=== PATIENT | female | born 1935 | race Caucasian/White ===

== ENCOUNTER 2019-03-28 18:41 | Inpatient (IN) | payer OTHER, MEDICAID ==
[~2019-03-28] VITALS: Ht 157.5 cm; Wt 71.0 kg
[2019-03-28 18:43] VITALS: BP_SYST 161
[2019-03-28] MEDS ORDERED: ONDANSETRON HCL 4 MG/2 ML VIAL IVP ONE (18:45)
[2019-03-28] MEDS ORDERED: MORPHINE 4 MG/ML INJ. SYRINGE IVP ONE ×2 (18:45→21:30)
[2019-03-28 19:05] LABS: BASOPHILS % (AUTO) 0.6 % (0.0-2.0); EOSINOPHILS # (AUTO) 0.1 K/uL (0.0-0.4); EOSINOPHILS % (AUTO) 1.5 % (0.0-4.0); HEMATOCRIT 35.4 % (36-48); HEMOGLOBIN 11.9 g/dL (12.0-16.0); LYMPHOCYTES # (AUTO) 1.7 K/uL (1.0-5.5); LYMPHOCYTES % (AUTO) 29.3 % (20.5-51.5); MEAN CORPUSCULAR HEMOGLOBIN 28 pg (27-31); MEAN CORPUSCULAR HGB CONC 34 % (32-36); MEAN CORPUSCULAR VOLUME 84 fL (79.0-98.0); MONOCYTES # (AUTO) 0.4 K/uL (0.0-1.0); MONOCYTES % (AUTO) 6.5 % (1.7-9.3); NEUTROPHILS # (AUTO) 3.6 K/uL (1.8-7.7); NEUTROPHILS % (AUTO) 62.1 % (40.0-70.0); PLATELET COUNT (AUTO) 274 K/uL (130-430); RED CELL DISTRIBUTION WIDTH 16.8 % (9.0-15.0); WHITE BLOOD COUNT (AUTO) 5.8 K/uL (4.8-10.8)
[2019-03-28 19:14] LABS: ANION GAP 7 (5-15); CALCIUM 8.9 mg/dL (8.4-11.0); CHLORIDE 101 mmol/L (98-107); CREATININE 1.12 mg/dL (0.55-1.30); GLUCOSE 124 mg/dL (70-99); POTASSIUM 3.7 mmol/L (3.5-5.1); SODIUM SERUM 135 mmol/L (136-145); UREA NITROGEN, BLOOD 21 mg/dL (8-21)
[2019-03-28] MEDS ORDERED: LEVO5TAB13 PO (19:58)
[2019-03-28] MEDS ORDERED: ALEN10TA6 PO (19:58)
[2019-03-28] MEDS ORDERED: BUPR-120 PO (19:58)
[2019-03-28] MEDS ORDERED: SENN-104 PO (19:58)
[2019-03-28] MEDS ORDERED: LUBI24CA5 PO (19:58)
[2019-03-28] MEDS ORDERED: CALC-805 PO (19:58)
[2019-03-28] MEDS ORDERED: FAMO20TA8 PO (19:58)
[2019-03-28] MEDS ORDERED: GLIM1TAB PO (19:58)
[2019-03-28] MEDS ORDERED: IRBE300T40 PO (19:58)
[2019-03-28] MEDS ORDERED: ROSU20TA PO (19:58)
[2019-03-28] MEDS ORDERED: OMEG-98 PO (19:58)
[2019-03-28] MEDS ORDERED: VITD2000 PO (19:58)
[2019-03-28] MEDS ORDERED: FERR140T2 PO (19:58)
[2019-03-28] MEDS ORDERED: LINA5TAB2 PO (19:58)
[2019-03-28] MEDS ORDERED: TRAZ-218 PO (19:58)
[2019-03-28] MEDS ORDERED: CARV25TA55 PO (19:58)
[2019-03-28] MEDS ORDERED: KETOROLAC TROMETHAMINE 60 MG/2 ML VIAL IM ONE (20:15)
[2019-03-28] MEDS ORDERED: PROPOFOL 200MG/ 20ML VIAL (DIPRIVAN) IV ONE (20:30)
[2019-03-28] MEDS ORDERED: MORPHINE 2 MG/ML INJ. SYRINGE IVP ONE (21:00)
[2019-03-28] MEDS ORDERED: MAGNESIUM SULFATE 50 ML IV PRN (21:45)
[2019-03-28] MEDS ORDERED: ONDANSETRON HCL 4 MG/2 ML VIAL IVP PRN (21:45)
[2019-03-28] MEDS ORDERED: ACETAMINOPHEN 325 MG TABLET PO PRN (21:45)
[2019-03-28] MEDS ORDERED: LORazepam 2 MG/ML VIAL IVP PRN (21:45)
[2019-03-28] MEDS ORDERED: MUPIROCIN 2% TOPICAL OINTMENT 22 GM NS PRN (21:45)
[2019-03-28] MEDS ORDERED: DOCUSATE SODIUM 100 MG CAPSULE PO PRN (21:45)
[2019-03-28] MEDS ORDERED: POTASSIUM CHLORIDE 20 MEQ TAB.PRT.SR PO PRN (21:45)
[2019-03-28] MEDS ORDERED: MORPHINE 2 MG/ML INJ. SYRINGE IVP PRN (21:45)
[2019-03-28] MEDS ORDERED: DEXTROSE 50% JECT 50 ML DISP.SYRIN IVP PRN (21:45)
[2019-03-28 22:51] VITALS: BP_SYST 125
[2019-03-28] MEDS: INSULIN LISPRO SLIDING SCALE 100 UNITS/ML VIAL (humaLOG) SUBCUT PRN (22:59)
[2019-03-28] MEDS: NACL 0.9% 1,000 ML IV SCH (22:59)
[2019-03-28] MEDS: MORPHINE 2 MG/ML INJ. SYRINGE IVP PRN (23:10)
[2019-03-28 23:39] VITALS: BP_SYST 136
[2019-03-29] MEDS: ZOLPIDEM TARTRATE 5 MG TABLET PO PRN ×2 (01:35→20:27)
[2019-03-29 05:25] LABS: BASOPHILS % (AUTO) 0.3 % (0.0-2.0); EOSINOPHILS # (AUTO) 0.1 K/uL (0.0-0.4); EOSINOPHILS % (AUTO) 1.4 % (0.0-4.0); HEMATOCRIT 31.7 % (36-48); HEMOGLOBIN 10.4 g/dL (12.0-16.0); LYMPHOCYTES # (AUTO) 1.4 K/uL (1.0-5.5); LYMPHOCYTES % (AUTO) 25.4 % (20.5-51.5); MEAN CORPUSCULAR HEMOGLOBIN 28 pg (27-31); MEAN CORPUSCULAR HGB CONC 33 % (32-36); MEAN CORPUSCULAR VOLUME 85 fL (79.0-98.0); MONOCYTES # (AUTO) 0.4 K/uL (0.0-1.0); MONOCYTES % (AUTO) 7.8 % (1.7-9.3); NEUTROPHILS # (AUTO) 3.7 K/uL (1.8-7.7); NEUTROPHILS % (AUTO) 65.1 % (40.0-70.0); PLATELET COUNT (AUTO) 231 K/uL (130-430); RED BLOOD CELL COUNT(AUTO) 3.71 MIL/uL (4.2-6.2); RED CELL DISTRIBUTION WIDTH 16.9 % (9.0-15.0); WHITE BLOOD COUNT (AUTO) 5.6 K/uL (4.8-10.8)
[2019-03-29] MEDS: MORPHINE 2 MG/ML INJ. SYRINGE IVP PRN ×2 (05:59→20:27)
[2019-03-29 06:45] LABS: ANION GAP 4 (5-15); CALCIUM 8.3 mg/dL (8.4-11.0); CHLORIDE 104 mmol/L (98-107); CREATININE 1.09 mg/dL (0.55-1.30); GLUCOSE 83 mg/dL (70-99); POTASSIUM 3.6 mmol/L (3.5-5.1); SODIUM SERUM 136 mmol/L (136-145); UREA NITROGEN, BLOOD 18 mg/dL (8-21)
[2019-03-29 08:00] VITALS: BP_SYST 141
[2019-03-29] MEDS: HEPARIN SODIUM,PORCINE 5000 UNITS/ML VIAL SUBCUT SCH ×2 (08:54→20:28)
[2019-03-29] MEDS: LUBIPROSTONE 24 MCG CAPSULE PO SCH ×2 (08:55→17:39)
[2019-03-29] MEDS: buPROPion HCL 150 MG XL TAB PO SCH (08:55)
[2019-03-29] MEDS: CARVEDILOL 25 MG TABLET (COREG) PO SCH (08:55)
[2019-03-29] MEDS ORDERED: KETOROLAC TROMETHAMINE 15 MG VIAL IVP PRN (11:30)
[2019-03-29] MEDS ORDERED: KETOROLAC TROMETHAMINE 15 MG VIAL ONE (11:39)
[2019-03-29 12:35] VITALS: BP_SYST 107
[2019-03-29] MEDS: NACL 0.9% 1,000 ML IV SCH ×2 (14:40→20:28)
[2019-03-29 17:30] VITALS: BP_SYST 123
[2019-03-29 21:00] VITALS: BP_SYST 125
[2019-03-29] MEDS ORDERED: traZODone HCL 50 MG TABLET (DESYREL) PO SCH (21:00)
[2019-03-30 00:48] VITALS: BP_SYST 149
[2019-03-30 07:01] LABS: BASOPHILS % (AUTO) 0.4 % (0.0-2.0); EOSINOPHILS # (AUTO) 0.2 K/uL (0.0-0.4); EOSINOPHILS % (AUTO) 3.6 % (0.0-4.0); HEMATOCRIT 32.9 % (36-48); HEMOGLOBIN 10.9 g/dL (12.0-16.0); LYMPHOCYTES # (AUTO) 1.4 K/uL (1.0-5.5); LYMPHOCYTES % (AUTO) 26.3 % (20.5-51.5); MEAN CORPUSCULAR HEMOGLOBIN 28 pg (27-31); MEAN CORPUSCULAR HGB CONC 33 % (32-36); MEAN CORPUSCULAR VOLUME 85 fL (79.0-98.0); MONOCYTES # (AUTO) 0.4 K/uL (0.0-1.0); MONOCYTES % (AUTO) 6.5 % (1.7-9.3); NEUTROPHILS # (AUTO) 3.4 K/uL (1.8-7.7); NEUTROPHILS % (AUTO) 63.2 % (40.0-70.0); PLATELET COUNT (AUTO) 227 K/uL (130-430); RED BLOOD CELL COUNT(AUTO) 3.86 MIL/uL (4.2-6.2); RED CELL DISTRIBUTION WIDTH 16.7 % (9.0-15.0); WHITE BLOOD COUNT (AUTO) 5.4 K/uL (4.8-10.8)
[2019-03-30 07:21] LABS: ANION GAP 6 (5-15); CALCIUM 8.4 mg/dL (8.4-11.0); CHLORIDE 104 mmol/L (98-107); CHOLESTEROL 120 mg/dL (<200); CREATININE 1.02 mg/dL (0.55-1.30); GLUCOSE 92 mg/dL (70-99); HDL CHOLESTEROL 36 mg/dL (>55); LDL CHOLESTEROL 61 mg/dL (<100); POTASSIUM 3.5 mmol/L (3.5-5.1); SODIUM SERUM 136 mmol/L (136-145); THYROID STIMULATING HORMONE 0.84 uIu/mL (0.34-4.82); TRIGLYCERIDES 144 mg/dL (30-150); UREA NITROGEN, BLOOD 16 mg/dL (8-21)
[2019-03-30 08:00] VITALS: BP_SYST 179
[2019-03-30] MEDS: LUBIPROSTONE 24 MCG CAPSULE PO SCH ×2 (08:00→18:00)
[2019-03-30] MEDS: buPROPion HCL 150 MG XL TAB PO SCH (08:21)
[2019-03-30] MEDS: HEPARIN SODIUM,PORCINE 5000 UNITS/ML VIAL SUBCUT SCH ×2 (08:21→20:46)
[2019-03-30] MEDS: CARVEDILOL 25 MG TABLET (COREG) PO SCH (08:31)
[2019-03-30] MEDS: MORPHINE 2 MG/ML INJ. SYRINGE IVP PRN (08:31)
[2019-03-30] MEDS: cloNIDine HCL 0.1 MG TABLET PO PRN (08:32)
[2019-03-30 12:39] VITALS: BP_SYST 103
[2019-03-30] MEDS ORDERED: D5NS 1,000 ML IV SCH (13:15)
[2019-03-30] MEDS ORDERED: POLYMYXIN 500,000/BACIT.10,000 UNITS in NS IRR 1 L IR ONE (15:37)
[2019-03-30] MEDS ORDERED: LR 1,000 ML IV SCH (16:11)
[2019-03-30] MEDS ORDERED: HYDROmorphone 1 MG INJ. 1 MG/ML AMPUL IVP PRN (16:15)
[2019-03-30] MEDS ORDERED: MEPERIDINE HCL/PF 25 MG/ML DISP.SYRIN IVP PRN (16:15)
[2019-03-30] MEDS ORDERED: HYDROmorphone 2 MG/ML VIAL IVP PRN ×2 (16:15)
[2019-03-30 16:43] VITALS: BP_SYST 130
[2019-03-30 20:37] VITALS: BP_SYST 147
[2019-03-30] MEDS: NACL 0.9% 1,000 ML IV SCH (20:43)
[2019-03-30] MEDS: INSULIN LISPRO SLIDING SCALE 100 UNITS/ML VIAL (humaLOG) SUBCUT PRN (20:45)
[2019-03-30] MEDS: ZOLPIDEM TARTRATE 5 MG TABLET PO PRN (22:38)
[2019-03-30 23:30] VITALS: BP_SYST 125
[2019-03-31 05:40] LABS: BASOPHILS % (AUTO) 0.1 % (0.0-2.0); HEMATOCRIT 35.7 % (36-48); HEMOGLOBIN 11.8 g/dL (12.0-16.0); LYMPHOCYTES # (AUTO) 0.8 K/uL (1.0-5.5); LYMPHOCYTES % (AUTO) 11.3 % (20.5-51.5); MEAN CORPUSCULAR HEMOGLOBIN 28 pg (27-31); MEAN CORPUSCULAR HGB CONC 33 % (32-36); MEAN CORPUSCULAR VOLUME 85 fL (79.0-98.0); MONOCYTES # (AUTO) 0.1 K/uL (0.0-1.0); MONOCYTES % (AUTO) 1.9 % (1.7-9.3); NEUTROPHILS # (AUTO) 5.9 K/uL (1.8-7.7); NEUTROPHILS % (AUTO) 86.7 % (40.0-70.0); PLATELET COUNT (AUTO) 234 K/uL (130-430); RED BLOOD CELL COUNT(AUTO) 4.17 MIL/uL (4.2-6.2); RED CELL DISTRIBUTION WIDTH 16.4 % (9.0-15.0); WHITE BLOOD COUNT (AUTO) 6.8 K/uL (4.8-10.8)
[2019-03-31 06:06] LABS: ANION GAP 6 (5-15); CALCIUM 8.4 mg/dL (8.4-11.0); CHLORIDE 105 mmol/L (98-107); CREATININE 0.96 mg/dL (0.55-1.30); GLUCOSE 163 mg/dL (70-99); POTASSIUM 3.4 mmol/L (3.5-5.1); SODIUM SERUM 134 mmol/L (136-145); UREA NITROGEN, BLOOD 17 mg/dL (8-21)
[2019-03-31] MEDS: INSULIN LISPRO SLIDING SCALE 100 UNITS/ML VIAL (humaLOG) SUBCUT PRN ×2 (06:15→12:02)
[2019-03-31 08:00] VITALS: BP_SYST 152
[2019-03-31] MEDS: LUBIPROSTONE 24 MCG CAPSULE PO SCH (08:29)
[2019-03-31] MEDS: buPROPion HCL 150 MG XL TAB PO SCH (08:29)
[2019-03-31] MEDS: CARVEDILOL 25 MG TABLET (COREG) PO SCH (08:29)
[2019-03-31] MEDS: HEPARIN SODIUM,PORCINE 5000 UNITS/ML VIAL SUBCUT SCH (08:31)
[2019-03-31] MEDS: MORPHINE 2 MG/ML INJ. SYRINGE IVP PRN ×2 (09:28→13:33)
[2019-03-31 11:21] VITALS: BP_SYST 138
[2019-03-31 12:33] VITALS: BP_SYST 138
[2019-03-31] MEDS: cloNIDine HCL 0.1 MG TABLET PO PRN (14:13)
[2019-03-31 14:59] VITALS: BP_SYST 143
[2019-03-31 15:49] VITALS: BP_SYST 143
[2019-03-31 16:22] VITALS: BP_SYST 141
== END 2019-03-31 16:25 | DRG 494 ==
LOC: SED 18:41 → SMU 21:05
PROVIDERS: ADMIT General Practice; ATTEND General Practice
PROC: 2W3MX1Z Immobilization of Left Lower Extremity using Splint (ICD-10-PCS; principal; 2019-03-28)
PROC: 0QSH04Z Reposition Left Tibia with Internal Fixation Device, Open Approach (ICD-10-PCS; 2019-03-30)
DX: S82.842A Displaced bimalleolar fracture of left lower leg, initial encounter for closed fracture (principal); I10 Essential (primary) hypertension; E11.9 Type 2 diabetes mellitus without complications; E78.5 Hyperlipidemia, unspecified; F41.1 Generalized anxiety disorder; K21.9 Gastro-esophageal reflux disease without esophagitis; Z96.653 Presence of artificial knee joint, bilateral; F32.9 Major depressive disorder, single episode, unspecified; R26.9 Unspecified abnormalities of gait and mobility; E87.6 Hypokalemia; Z87.891 Personal history of nicotine dependence; Z90.49 Acquired absence of other specified parts of digestive tract; Z90.710 Acquired absence of both cervix and uterus; Z88.0 Allergy status to penicillin; Z88.9 Allergy status to unspecified drugs, medicaments and biological substances; W18.11XA Fall from or off toilet without subsequent striking against object, initial encounter; Y93.89 Activity, other specified; Y92.89 Other specified places as the place of occurrence of the external cause; Y99.8 Other external cause status; Z79.4 Long term (current) use of insulin; M81.0 Age-related osteoporosis without current pathological fracture
CPT/HCPCS: 36415; 71045; 76000; 80048; 80061; 82962; 83036; 83735-TC; 84443-TC; 84484; 85025; 87081; 93005; 93306; 96374; 96375; 99285; C1713; C1763; J1644; J1885; J2270; J2405; J2704; J7030; J7042

== ENCOUNTER 2022-07-23 06:02 | Emergency (ER) | payer OTHER, MEDICAID ==
[~2022-07-23] VITALS: Ht 152.4 cm; Wt 72.6 kg
[~2022-07-23 06:02] MED LIST: ALEN10TA25 PO; BUPR-120 PO; CALC-17 PO; CARV25TA55 PO; FAMO20TA8 PO; FERR140T2 PO; GLIM1TAB PO; IRBE300T40 PO; LEVO5TAB13 PO; LINA5TAB2 PO; LUBI24CA5 PO; OMEG-220 PO; ROSU20TA2 PO; SENN-295 PO; TRAZ-250 PO; VITD2000 PO
[2022-07-23 06:07] VITALS: BP_SYST 171
--- NOTE | 2022-07-23 06:13 | NUR ---
PT HERE BIB BLS C/O CANDI KNEE, LT ANKLE AND RT SHOULDER PAIN S/P MECH SLIPPED AND FALL. PT DENIES KO. PT SUSTAIN SWELLING TO LT KNEE. PMH:HTN PT AAOX4, NO SOB NOTED, REPORTED 07/12, PT POSITION FOR COMFORT. SEEN AND EXAMINE BY DR. AGUILAR. REPORT GIVEN TO FAM CARTAGENA.
[2022-07-23] MEDS ORDERED: HYDROcodone/ACETAMIN 7.5-325 MG TAB PO ONE (06:15)
[2022-07-23] MEDS ORDERED: IBUPROFEN 800 MG TABLET PO ONE (06:15)
--- NOTE | 2022-07-23 06:27 | NUR ---
MD AGUILAR AT BEDSIDE EXAMINING PT
--- NOTE | 2022-07-23 06:27 | NUR ---
Patient provided with cold pack to L knee and L ankle for pain management. Pain at 10/10 on pain scale of 0-10.
--- NOTE | 2022-07-23 06:49 | NUR ---
RAD AT BEDSIDE FOR IMAGING.
--- NOTE | 2022-07-23 07:11 | NUR ---
HANDOFF REPORT GIVEN TO MITZI GAUTAM. QUESTIONS/CONCERNS ANSWERED.
--- NOTE | 2022-07-23 07:15 | NUR ---
RECEIVED PT FROM MITZI MARCELO. PT IS BEING SEEN FOR LEFT LEG PAIN. PT DENIES PAIN AT THIS TIME. PT IS AAOX4. ON R/A. DENIES N/V/D/C. LEFT FOOT TRACE EDEMA, ELEVATED WITH COLD COMPRESS IN PLACED. SKIN INTACT. SIDERAILS UP X2.
[2022-07-23] MEDS ORDERED: HYDR-3917 PO (08:13)
[2022-07-23] MEDS ORDERED: IBUP-1969 PO (08:13)
--- NOTE | 2022-07-23 08:28 | NUR ---
CALLED PT'S DAUGHTER IN [employer] JAVI TO SEE IF PT HAD ASSISTANCE AT HOME. JAVI STATED THAT THE PATIENT HAS 2 SONS THAT CAN HELP AND THAT ONE WILL BE AT THE HOSPITAL FOR DISCHARGE.
[2022-07-23 08:35] VITALS: BP_SYST 151
--- NOTE | 2022-07-23 09:23 | NUR ---
Patient given written and verbal discharge instructions and verbalizes understanding. ER MD discussed with patient the results and treatment provided. Patient in stable condition. ID arm band removed. IV catheter removed intact and dressing applied, no active bleeding. Rx of IBUPROPHEN, NORCO given. Patient educated on pain management and to follow up with PMD. Pain Scale 3/10. Opportunity for questions provided and answered. Medication side effect fact sheet provided.
== END 2022-07-23 09:23 | disposition home or self-care (01) ==
LOC: SED 06:02
DX: S93.402A Sprain of unspecified ligament of left ankle, initial encounter (principal); S93.602A Unspecified sprain of left foot, initial encounter; S40.011A Contusion of right shoulder, initial encounter; E11.9 Type 2 diabetes mellitus without complications; I10 Essential (primary) hypertension; Z88.0 Allergy status to penicillin; Z88.6 Allergy status to analgesic agent; Z91.041 Radiographic dye allergy status; Z88.8 Allergy status to other drugs, medicaments and biological substances; Z79.899 Other long term (current) drug therapy; W01.0XXA Fall on same level from slipping, tripping and stumbling without subsequent striking against object, initial encounter; Y93.89 Activity, other specified; Y92.89 Other specified places as the place of occurrence of the external cause; Y99.8 Other external cause status
CPT/HCPCS: 73030; 73564; 99284

== ENCOUNTER 2023-08-22 08:53 | Inpatient (IN) | payer OTHER, MEDICAID ==
[~2023-08-22] VITALS: Ht 160 cm; Wt 69.9 kg
[~2023-08-22 08:53] MED LIST changes: +HYDR-3917 PO; +IBUP-1969 PO
[2023-08-22 09:43] LABS: COVID19 ANTIGEN SOFIA FIA NEGATIVE (NEGATIVE)
[2023-08-22 09:50] LABS: INFLUENZA TYPE A Negative (NEGATIVE); INFLUENZA TYPE B NEGATIVE (NEGATIVE)
[2023-08-22] MEDS ORDERED: MORPHINE 2 MG/ML INJ. SYRINGE IVP ONE (10:00)
[2023-08-22] MEDS ORDERED: ONDANSETRON HCL 4 MG/2 ML VIAL IVP ONE (10:00)
[2023-08-22 10:26] LABS: BASOPHILS # (AUTO) 0.1 K/uL (0.0-0.2); BASOPHILS % (AUTO) 0.4 % (0.0-2.0); EOSINOPHILS % (AUTO) 0.2 % (0.0-4.0); HEMATOCRIT 35.9 % (36-48); HEMOGLOBIN 11.5 g/dL (12.0-16.0); LYMPHOCYTES # (AUTO) 1.5 K/uL (1.0-5.5); MEAN CORPUSCULAR HEMOGLOBIN 27 pg (27-31); MEAN CORPUSCULAR HGB CONC 32 % (32-36); MEAN CORPUSCULAR VOLUME 83 fL (79.0-98.0); MONOCYTES # (AUTO) 1.1 K/uL (0.0-1.0); MONOCYTES % (AUTO) 6.3 % (1.7-9.3); NEUTROPHILS # (AUTO) 15.5 K/uL (1.8-7.7); NEUTROPHILS % (AUTO) 85.1 % (40.0-70.0); PLATELET COUNT (AUTO) 535 K/uL (130-430); RED CELL DISTRIBUTION WIDTH 15.5 % (9.0-15.0); WHITE BLOOD COUNT (AUTO) 18.2 K/uL (4.8-10.8)
[2023-08-22 10:40] LABS: ANION GAP 10 (5-15); CALCIUM 9.5 mg/dL (8.4-11.0); CARBON DIOXIDE 27 mmol/L (23-29); CHLORIDE 94 mmol/L (98-107); CREATININE 1.35 mg/dL (0.55-1.30); GLUCOSE 140 mg/dL (74-106); POTASSIUM 4.5 mmol/L (3.5-5.1); SODIUM SERUM 131 mmol/L (136-145); UREA NITROGEN, BLOOD 25 mg/dL (8-21)
[2023-08-22 10:46] LABS: ALANINE AMINOTRANSFERASE 19 U/L (12-78); ALBUMIN 3.1 g/dL (3.4-4.8); ASPARTATE AMINOTRANSFERASE 13 U/L (10-37); LIPASE 26 U/L (16-77); TOTAL BILIRUBIN 0.4 mg/dL (0.0-1.0)
[2023-08-22] MEDS ORDERED: AZITHROMYCIN 500 MG in NS 250 ML IV ONE (11:45)
[2023-08-22 11:51] LABS: BILIRUBIN,URINE NEGATIVE (NEGATIVE); CLARITY/URINE CLOUDY (CLEAR); COLOR,URINE YELLOW (YELLOW); GLUCOSE,URINE NEGATIVE (NEGATIVE); KETONES,URINE TRACE (NEGATIVE); LEUKOCYTE ESTERASE ,URINE 1+ (NEGATIVE); NITRITE, URINE NEGATIVE (NEGATIVE); PH,URINE 6.5 (5.0-8.0); PROTEIN URINE TRACE (NEGATIVE); UROBILINOGEN,URINE 0.2 (0.2-1.0)
[2023-08-22] MEDS ORDERED: traZODone HCL 50 MG TABLET (DESYREL) PO ONE (12:00)
[2023-08-22] MEDS ORDERED: CIPROFLOXACIN LACT 400 MG/D5W 200 ML IV ONE (12:00)
[2023-08-22] MEDS ORDERED: metroNIDAZOLE 500 mg/NS 100 ML IV ONE (12:00)
[2023-08-22] MEDS ORDERED: LORazepam 1 MG TABLET PO ONE (12:00)
[2023-08-22 12:01] LABS: BLOOD, URINE TRACE (NEGATIVE)
[2023-08-22 12:08] LABS: BACTERIA,URINE MANY /HPF (None Seen)
[2023-08-22] MEDS ORDERED: DEXTROSE 50% JECT 50 ML DISP.SYRIN IVP PRN (13:00)
[2023-08-22] MEDS ORDERED: MAGNESIUM SULFATE 50 ML IV PRN (13:00)
[2023-08-22] MEDS ORDERED: POTASSIUM CHLORIDE 20 MEQ TABLET.ER PO PRN (13:00)
[2023-08-22] MEDS ORDERED: LORazepam 2 MG/ML VIAL IVP PRN (13:00)
[2023-08-22] MEDS ORDERED: DOCUSATE SODIUM 100 MG CAPSULE PO PRN (13:00)
[2023-08-22] MEDS ORDERED: NALOXONE HCL 0.4 MG/ML AMP (NARCAN) IVP PRN ×3 (13:00→19:00)
[2023-08-22] MEDS ORDERED: MUPIROCIN 2% TOPICAL OINTMENT 22 GM NS PRN (13:00)
[2023-08-22] MEDS ORDERED: MORPHINE 2 MG/ML INJ. SYRINGE IVP PRN ×2 (13:00)
[2023-08-22] MEDS ORDERED: VIBE75TA PO (14:28)
[2023-08-22] MEDS ORDERED: VIS10 PO (14:28)
[2023-08-22] MEDS ORDERED: GLIM1TAB18 PO (14:28)
[2023-08-22] MEDS ORDERED: OMEP1CAP25 PO (14:28)
[2023-08-22] MEDS ORDERED: VALS320T16 PO (14:28)
[2023-08-22] MEDS ORDERED: FINE10TA PO (14:28)
[2023-08-22] MEDS ORDERED: PIOG15TA67 PO (14:28)
[2023-08-22] MEDS ORDERED: ALEN70TA27 PO (14:28)
[2023-08-22] MEDS ORDERED: CLON0.5T4 PO (14:28)
[2023-08-22] MEDS ORDERED: AMLO5TAB92 PO (14:28)
[2023-08-22] MEDS ORDERED: PRED10TA PO (14:28)
[2023-08-22] MEDS ORDERED: ACETAMINOPHEN 500 MG TABLET PO PRN ×3 (14:30)
[2023-08-22] MEDS: D5NS 1,000 ML IV SCH (15:28)
[2023-08-22] MEDS: metroNIDAZOLE 500 mg/NS 100 ML IV SCH ×2 (17:14→23:16)
[2023-08-22] MEDS: INSULIN LISPRO SLIDING SCALE 100 UNITS/ML, 3 ML VIAL (humaLOG) SUBCUT PRN (19:04)
[2023-08-22 19:50] VITALS: BP_SYST 114; PULSE 77; RESP 20; TEMP 97; O2SAT 96
[2023-08-22 20:09] VITALS: BP_SYST 114; PULSE 77; RESP 18; TEMP 98; O2SAT 96
[2023-08-22] MEDS: MORPHINE 2 MG/ML INJ. SYRINGE IVP PRN (20:38)
[2023-08-22] MEDS: CARVEDILOL 25 MG TABLET (COREG) PO SCH (20:40)
[2023-08-22] MEDS: traZODone HCL 50 MG TABLET (DESYREL) PO SCH (20:40)
[2023-08-23] VITALS: BP_SYST 94; PULSE 82; RESP 18; TEMP 98.6; O2SAT 94
[2023-08-23] MEDS: MORPHINE 4 MG INJ. 4 MG/ML VIAL IVP PRN ×6 (04:01→23:42)
[2023-08-23 04:28] LABS: BASOPHILS % (AUTO) 0.2 % (0.0-2.0); EOSINOPHILS % (AUTO) 0.4 % (0.0-4.0); HEMATOCRIT 30.5 % (36-48); HEMOGLOBIN 9.9 g/dL (12.0-16.0); LYMPHOCYTES # (AUTO) 1.1 K/uL (1.0-5.5); LYMPHOCYTES % (AUTO) 10.5 % (20.5-51.5); MEAN CORPUSCULAR HEMOGLOBIN 27 pg (27-31); MEAN CORPUSCULAR HGB CONC 33 % (32-36); MEAN CORPUSCULAR VOLUME 84 fL (79.0-98.0); MONOCYTES # (AUTO) 0.9 K/uL (0.0-1.0); MONOCYTES % (AUTO) 8.5 % (1.7-9.3); NEUTROPHILS # (AUTO) 8.2 K/uL (1.8-7.7); NEUTROPHILS % (AUTO) 80.4 % (40.0-70.0); PLATELET COUNT (AUTO) 407 K/uL (130-430); RED BLOOD CELL COUNT(AUTO) 3.63 MIL/uL (4.2-6.2); RED CELL DISTRIBUTION WIDTH 15.5 % (9.0-15.0); WHITE BLOOD COUNT (AUTO) 10.2 K/uL (4.8-10.8)
[2023-08-23 04:41] LABS: ANION GAP 7 (5-15); CALCIUM 8.2 mg/dL (8.4-11.0); CARBON DIOXIDE 27 mmol/L (23-29); CHLORIDE 100 mmol/L (98-107); GLUCOSE 127 mg/dL (74-106); POTASSIUM 4.1 mmol/L (3.5-5.1); SODIUM SERUM 134 mmol/L (136-145); UREA NITROGEN, BLOOD 16 mg/dL (8-21)
[2023-08-23] MEDS: D5NS 1,000 ML IV SCH ×2 (05:36→13:20)
[2023-08-23 08:00] VITALS: BP_SYST 155; PULSE 79; RESP 16; TEMP 97.8; O2SAT 93
[2023-08-23] MEDS ORDERED: IRBESARTAN 150 MG TABLET (AVAPRO) PO SCH (09:00)
[2023-08-23] MEDS: CARVEDILOL 25 MG TABLET (COREG) PO SCH ×2 (09:00→21:00)
[2023-08-23] MEDS: LOSARTAN POTASSIUM 50 MG TABLET (COZAAR) PO SCH (09:00)
[2023-08-23] MEDS: buPROPion HCL 150 MG XL TAB PO SCH (09:00)
[2023-08-23] MEDS: metroNIDAZOLE 500 mg/NS 100 ML IV SCH ×3 (09:22→23:43)
[2023-08-23] MEDS: ONDANSETRON HCL 4 MG/2 ML VIAL IVP PRN (09:55)
[2023-08-23 12:28] VITALS: BP_SYST 147; PULSE 80; RESP 17; TEMP 98; O2SAT 98
[2023-08-23 16:35] VITALS: BP_SYST 150; PULSE 78; RESP 16; TEMP 97.9; O2SAT 98
[2023-08-23 20:00] VITALS: BP_SYST 122; PULSE 80; RESP 21; TEMP 98.7; O2SAT 93
[2023-08-23] MEDS: traZODone HCL 50 MG TABLET (DESYREL) PO SCH (21:00)
[2023-08-23 23:23] VITALS: O2SAT 93
[2023-08-23] MEDS: ZOLPIDEM TARTRATE 5 MG TABLET PO PRN (23:45)
[2023-08-24] VITALS (12 sets, daily range): BP systolic 84–130; PULSE 78–98; RESP 10–25; TEMP 97.6–98.7; O2SAT 93–100
[2023-08-24] MEDS: D5NS 1,000 ML IV SCH (03:18)
[2023-08-24] MEDS: MORPHINE 4 MG INJ. 4 MG/ML VIAL IVP PRN ×2 (06:02→10:15)
[2023-08-24 07:51] LABS: BASOPHILS % (AUTO) 0.4 % (0.0-2.0); EOSINOPHILS # (AUTO) 0.1 K/uL (0.0-0.4); EOSINOPHILS % (AUTO) 0.9 % (0.0-4.0); HEMATOCRIT 30.6 % (36-48); HEMOGLOBIN 9.7 g/dL (12.0-16.0); LYMPHOCYTES % (AUTO) 10.9 % (20.5-51.5); MEAN CORPUSCULAR HEMOGLOBIN 27 pg (27-31); MEAN CORPUSCULAR HGB CONC 32 % (32-36); MEAN CORPUSCULAR VOLUME 85 fL (79.0-98.0); MONOCYTES # (AUTO) 0.8 K/uL (0.0-1.0); MONOCYTES % (AUTO) 8.5 % (1.7-9.3); NEUTROPHILS # (AUTO) 7.1 K/uL (1.8-7.7); NEUTROPHILS % (AUTO) 79.3 % (40.0-70.0); PLATELET COUNT (AUTO) 404 K/uL (130-430); RED BLOOD CELL COUNT(AUTO) 3.61 MIL/uL (4.2-6.2); RED CELL DISTRIBUTION WIDTH 15.5 % (9.0-15.0)
[2023-08-24 08:12] LABS: ANION GAP 5 (5-15); CALCIUM 7.6 mg/dL (8.4-11.0); CARBON DIOXIDE 27 mmol/L (23-29); CHLORIDE 101 mmol/L (98-107); CREATININE 0.97 mg/dL (0.55-1.30); GLUCOSE 146 mg/dL (74-106); POTASSIUM 3.8 mmol/L (3.5-5.1); SODIUM SERUM 133 mmol/L (136-145); UREA NITROGEN, BLOOD 13 mg/dL (8-21)
[2023-08-24] MEDS: CARVEDILOL 25 MG TABLET (COREG) PO SCH ×2 (08:28→21:00)
[2023-08-24] MEDS: buPROPion HCL 150 MG XL TAB PO SCH (08:29)
[2023-08-24] MEDS: LOSARTAN POTASSIUM 50 MG TABLET (COZAAR) PO SCH (08:29)
[2023-08-24] MEDS: metroNIDAZOLE 500 mg/NS 100 ML IV SCH ×3 (08:33→23:52)
[2023-08-24] MEDS: ONDANSETRON HCL 4 MG/2 ML VIAL IVP PRN (10:21)
[2023-08-24] MEDS ORDERED: MIDAZOLAM HCL 2 MG/2 ML VIAL (VERSED) ONE (14:11)
[2023-08-24] MEDS ORDERED: HYDROmorphone 2 MG/ML VIAL ONE (14:12)
[2023-08-24] MEDS ORDERED: BUPIVACAINE LIPOSOME/PF 266 MG/20 ML VIAL INFIL ONE (14:57)
[2023-08-24] MEDS ORDERED: THROMBIN (BOVINE) 5000 UNITS/ VIAL TP ONE (15:42)
[2023-08-24] MEDS ORDERED: NALOXONE HCL 0.4 MG/ML AMP (NARCAN) IVP PRN ×2 (17:00→17:15)
[2023-08-24] MEDS ORDERED: ACETAMINOPHEN I.V. 1000 MG 100 ML IV ONE ×2 (17:00→17:07)
[2023-08-24] MEDS ORDERED: LR 1,000 ML IV SCH (17:00)
[2023-08-24] MEDS ORDERED: HYDROmorphone 1 MG/ML INJ. CARTRIDGE IVP PRN (17:00)
[2023-08-24] MEDS ORDERED: ONDANSETRON HCL 4 MG/2 ML VIAL IVP PRN (17:00)
[2023-08-24] MEDS ORDERED: ePHEDrine sulfate 50 MG/ML VIAL IVP PRN (17:00)
[2023-08-24] MEDS ORDERED: ALBUMIN HUMAN 5% 250 ML IV ONE ×2 (17:15→17:22)
[2023-08-24] MEDS ORDERED: ACETAMINOPHEN 325 MG TABLET PO PRN (17:15)
[2023-08-24] MEDS ORDERED: metroNIDAZOLE 500 mg/NS 100 ML IV SCH (17:15)
[2023-08-24] MEDS ORDERED: ONDANSETRON HCL 4 MG/2 ML VIAL ONE (17:16)
[2023-08-24] MEDS ORDERED: PHENYLEPHRINE HCL 10 MG/ML VIAL (NEOSYNEPHRINE) ONE (17:16)
[2023-08-24] MEDS ORDERED: ePHEDrine sulfate 50 MG/ML VIAL ONE (17:16)
[2023-08-24] MEDS ORDERED: BUPIVACAINE /PF 0.5% 30 ML VIAL ONE (17:16)
[2023-08-24] MEDS ORDERED: SEVOFLURANE 15 MIN GAS INH ONE (17:16)
[2023-08-24] MEDS ORDERED: LR 1,000 ML IV.SOLN IV ONE (17:16)
[2023-08-24] MEDS ORDERED: ROCURONIUM BROMIDE 10 MG/ML (ZEMURON) ONE (17:16)
[2023-08-24] MEDS ORDERED: NS IRRIG SOLN 1000 ML IR ONE (17:16)
[2023-08-24] MEDS ORDERED: METHYLENE BLUE 1 ML AMPUL INJ ONE (17:16)
[2023-08-24] MEDS ORDERED: GLYCOPYRROLATE 0.2 MG/ML VIAL ONE (17:16)
[2023-08-24] MEDS ORDERED: PROPOFOL 200MG/ 20ML VIAL (DIPRIVAN) IV ONE (17:16)
[2023-08-24 17:32] LABS: BASOPHILS % (AUTO) 0.2 % (0.0-2.0); EOSINOPHILS # (AUTO) 0.1 K/uL (0.0-0.4); EOSINOPHILS % (AUTO) 0.9 % (0.0-4.0); HEMATOCRIT 31.8 % (36-48); HEMOGLOBIN 10.2 g/dL (12.0-16.0); LYMPHOCYTES # (AUTO) 1.8 K/uL (1.0-5.5); LYMPHOCYTES % (AUTO) 10.7 % (20.5-51.5); MEAN CORPUSCULAR HEMOGLOBIN 27 pg (27-31); MEAN CORPUSCULAR HGB CONC 32 % (32-36); MEAN CORPUSCULAR VOLUME 85 fL (79.0-98.0); MONOCYTES # (AUTO) 0.7 K/uL (0.0-1.0); MONOCYTES % (AUTO) 4.5 % (1.7-9.3); NEUTROPHILS # (AUTO) 13.7 K/uL (1.8-7.7); NEUTROPHILS % (AUTO) 83.7 % (40.0-70.0); PLATELET COUNT (AUTO) 457 K/uL (130-430); RED BLOOD CELL COUNT(AUTO) 3.75 MIL/uL (4.2-6.2); RED CELL DISTRIBUTION WIDTH 15.2 % (9.0-15.0); WHITE BLOOD COUNT (AUTO) 16.4 K/uL (4.8-10.8)
[2023-08-24] MEDS ORDERED: NOREPINEPHRINE BITARTRATE 4 MG in D5W 246 ML IV PRN (19:30)
[2023-08-24] MEDS ORDERED: NS 1000 ML IV.SOLN IV ONE (19:30)
[2023-08-24] MEDS: NACL 0.9% 1,000 ML IV SCH (20:18)
[2023-08-24] MEDS ORDERED: ALBUMIN HUMAN 25% 100 ML IV ONE (20:30)
[2023-08-24] MEDS: CEFAZOLIN 2 GM IVPB PREMIX 50 ML IV SCH (20:32)
[2023-08-24] MEDS: traZODone HCL 50 MG TABLET (DESYREL) PO SCH (21:00)
[2023-08-24] MEDS: MORPHINE 2 MG/ML INJ. SYRINGE IVP PRN (21:13)
[2023-08-24] MEDS: HYDROmorphone 1 MG/ML INJ. CARTRIDGE IVP PRN (23:51)
[2023-08-25] VITALS (23 sets, daily range): BP systolic 86–125; PULSE 92–105; RESP 9–31; TEMP 97.8–98.7; O2SAT 96–99
[2023-08-25] MEDS: HYDROmorphone 1 MG/ML INJ. CARTRIDGE IVP PRN ×5 (06:04→23:08)
[2023-08-25] MEDS: CEFAZOLIN 2 GM IVPB PREMIX 50 ML IV SCH (06:11)
[2023-08-25] MEDS: NACL 0.9% 1,000 ML IV SCH ×5 (06:12→23:13)
[2023-08-25 06:23] LABS: BASOPHILS % (AUTO) 0.1 % (0.0-2.0); EOSINOPHILS % (AUTO) 0.2 % (0.0-4.0); HEMATOCRIT 26.5 % (36-48); HEMOGLOBIN 8.6 g/dL (12.0-16.0); LYMPHOCYTES # (AUTO) 0.6 K/uL (1.0-5.5); LYMPHOCYTES % (AUTO) 4.7 % (20.5-51.5); MEAN CORPUSCULAR HEMOGLOBIN 28 pg (27-31); MEAN CORPUSCULAR HGB CONC 33 % (32-36); MEAN CORPUSCULAR VOLUME 85 fL (79.0-98.0); MONOCYTES # (AUTO) 0.5 K/uL (0.0-1.0); NEUTROPHILS # (AUTO) 11.7 K/uL (1.8-7.7); PLATELET COUNT (AUTO) 365 K/uL (130-430); RED BLOOD CELL COUNT(AUTO) 3.12 MIL/uL (4.2-6.2); RED CELL DISTRIBUTION WIDTH 15.1 % (9.0-15.0); WHITE BLOOD COUNT (AUTO) 12.9 K/uL (4.8-10.8)
[2023-08-25 06:59] LABS: ALANINE AMINOTRANSFERASE 22 U/L (12-78); ALBUMIN 2.1 g/dL (3.4-4.8); ANION GAP 7 (5-15); ASPARTATE AMINOTRANSFERASE 19 U/L (10-37); CALCIUM 7.7 mg/dL (8.4-11.0); CARBON DIOXIDE 23 mmol/L (23-29); CHLORIDE 105 mmol/L (98-107); GLUCOSE 156 mg/dL (74-106); SODIUM SERUM 135 mmol/L (136-145); TOTAL BILIRUBIN 0.3 mg/dL (0.0-1.0); TOTAL PROTEIN, SERUM 4.8 g/dL (6.4-8.3); UREA NITROGEN, BLOOD 11 mg/dL (8-21)
[2023-08-25] MEDS: MORPHINE 2 MG/ML INJ. SYRINGE IVP PRN ×3 (08:24→20:20)
[2023-08-25] MEDS: CARVEDILOL 25 MG TABLET (COREG) PO SCH (08:42)
[2023-08-25] MEDS: LOSARTAN POTASSIUM 50 MG TABLET (COZAAR) PO SCH (08:43)
[2023-08-25] MEDS: buPROPion HCL 150 MG XL TAB PO SCH (08:43)
[2023-08-25] MEDS: MEROPENEM 500 MG in NS 50 ML IV SCH ×2 (09:26→21:09)
[2023-08-25] MEDS: ALBUMIN HUMAN 25% 50 ML IV SCH ×3 (10:09→21:10)
[2023-08-25] MEDS: FLUCONAZOLE 200 mg/ NS 100 ML IV SCH (13:05)
[2023-08-25] MEDS: traZODone HCL 50 MG TABLET (DESYREL) PO SCH (21:09)
[2023-08-25 23:50] LABS: HEMATOCRIT 22.7 % (36-48); HEMOGLOBIN 7.2 g/dL (12.0-16.0)
[2023-08-26] VITALS (21 sets, daily range): BP systolic 94–153; PULSE 99–104; RESP 13–22; TEMP 97–98.9; O2SAT 93–98
[2023-08-26 05:34] LABS: BASOPHILS % (AUTO) 0.2 % (0.0-2.0); EOSINOPHILS % (AUTO) 0.3 % (0.0-4.0); HEMATOCRIT 27.1 % (36-48); HEMOGLOBIN 8.7 g/dL (12.0-16.0); LYMPHOCYTES # (AUTO) 0.7 K/uL (1.0-5.5); LYMPHOCYTES % (AUTO) 4.9 % (20.5-51.5); MEAN CORPUSCULAR HEMOGLOBIN 27 pg (27-31); MEAN CORPUSCULAR HGB CONC 32 % (32-36); MEAN CORPUSCULAR VOLUME 84 fL (79.0-98.0); MONOCYTES # (AUTO) 0.9 K/uL (0.0-1.0); MONOCYTES % (AUTO) 6.1 % (1.7-9.3); NEUTROPHILS # (AUTO) 13.4 K/uL (1.8-7.7); NEUTROPHILS % (AUTO) 88.5 % (40.0-70.0); PLATELET COUNT (AUTO) 314 K/uL (130-430); RED BLOOD CELL COUNT(AUTO) 3.24 MIL/uL (4.2-6.2); RED CELL DISTRIBUTION WIDTH 15.3 % (9.0-15.0); WHITE BLOOD COUNT (AUTO) 15.2 K/uL (4.8-10.8)
[2023-08-26] MEDS: HYDROmorphone 1 MG/ML INJ. CARTRIDGE IVP PRN ×4 (05:49→17:17)
[2023-08-26 06:16] LABS: ALANINE AMINOTRANSFERASE 13 U/L (12-78); ALBUMIN 2.3 g/dL (3.4-4.8); ANION GAP 10 (5-15); ASPARTATE AMINOTRANSFERASE 19 U/L (10-37); CALCIUM 7.7 mg/dL (8.4-11.0); CARBON DIOXIDE 20 mmol/L (23-29); CHLORIDE 108 mmol/L (98-107); CREATININE 1.95 mg/dL (0.55-1.30); GLUCOSE 102 mg/dL (74-106); LIPASE 13 U/L (16-77); POTASSIUM 4.1 mmol/L (3.5-5.1); SODIUM SERUM 138 mmol/L (136-145); TOTAL BILIRUBIN 0.4 mg/dL (0.0-1.0); UREA NITROGEN, BLOOD 11 mg/dL (8-21)
[2023-08-26] MEDS: MEROPENEM 500 MG in NS 50 ML IV SCH ×2 (09:00→21:24)
[2023-08-26] MEDS: NACL 0.9% 1,000 ML IV SCH ×3 (10:17→23:37)
[2023-08-26] MEDS: MORPHINE 2 MG/ML INJ. SYRINGE IVP PRN ×2 (11:20→20:53)
[2023-08-26] MEDS: FLUCONAZOLE 200 mg/ NS 100 ML IV SCH (13:47)
[2023-08-26] MEDS: D5/0.45 NS 1,000 ML IV SCH (17:40)
[2023-08-26] MEDS: metroNIDAZOLE 500 mg/NS 100 ML IV SCH (21:05)
[2023-08-26] MEDS: traZODone HCL 50 MG TABLET (DESYREL) PO SCH (21:07)
[2023-08-27] VITALS (7 sets, daily range): BP systolic 138–163; PULSE 97–100; RESP 17–20; TEMP 97.9–98.4; O2SAT 96–98
[2023-08-27] MEDS: HYDROmorphone 1 MG/ML INJ. CARTRIDGE IVP PRN ×5 (05:26→22:03)
[2023-08-27] MEDS: D5/0.45 NS 1,000 ML IV SCH ×3 (05:28→21:44)
[2023-08-27 05:33] LABS: BASOPHILS # (AUTO) 0.1 K/uL (0.0-0.2); BASOPHILS % (AUTO) 0.3 % (0.0-2.0); EOSINOPHILS # (AUTO) 0.1 K/uL (0.0-0.4); EOSINOPHILS % (AUTO) 0.6 % (0.0-4.0); HEMATOCRIT 30.8 % (36-48); HEMOGLOBIN 9.6 g/dL (12.0-16.0); LYMPHOCYTES # (AUTO) 0.7 K/uL (1.0-5.5); LYMPHOCYTES % (AUTO) 4.6 % (20.5-51.5); MEAN CORPUSCULAR HEMOGLOBIN 26 pg (27-31); MEAN CORPUSCULAR HGB CONC 31 % (32-36); MEAN CORPUSCULAR VOLUME 84 fL (79.0-98.0); MONOCYTES # (AUTO) 0.8 K/uL (0.0-1.0); NEUTROPHILS # (AUTO) 13.9 K/uL (1.8-7.7); NEUTROPHILS % (AUTO) 89.5 % (40.0-70.0); PLATELET COUNT (AUTO) 361 K/uL (130-430); RED BLOOD CELL COUNT(AUTO) 3.66 MIL/uL (4.2-6.2); RED CELL DISTRIBUTION WIDTH 16.1 % (9.0-15.0); WHITE BLOOD COUNT (AUTO) 15.6 K/uL (4.8-10.8)
[2023-08-27 06:08] LABS: ALANINE AMINOTRANSFERASE 11 U/L (12-78); ANION GAP 10 (5-15); ASPARTATE AMINOTRANSFERASE 26 U/L (10-37); CALCIUM 8.2 mg/dL (8.4-11.0); CARBON DIOXIDE 21 mmol/L (23-29); CHLORIDE 107 mmol/L (98-107); CREATININE 2.22 mg/dL (0.55-1.30); GLUCOSE 169 mg/dL (74-106); LIPASE 15 U/L (16-77); SODIUM SERUM 138 mmol/L (136-145); TOTAL BILIRUBIN 0.4 mg/dL (0.0-1.0); TOTAL PROTEIN, SERUM 5.3 g/dL (6.4-8.3); UREA NITROGEN, BLOOD 16 mg/dL (8-21)
[2023-08-27] MEDS: NACL 0.9% 1,000 ML IV SCH (06:17)
[2023-08-27] MEDS: INSULIN LISPRO SLIDING SCALE 100 UNITS/ML, 3 ML VIAL (humaLOG) SUBCUT PRN ×2 (06:55→22:01)
[2023-08-27] MEDS ORDERED: IRON DEXTRAN COMPLEX 100 MG in NS 100 ML IV SCH (09:00)
[2023-08-27] MEDS: metroNIDAZOLE 500 mg/NS 100 ML IV SCH ×2 (10:23→21:42)
[2023-08-27] MEDS: SOD FERRIC GLUC COMPLEX/SUC 125 MG in NS 100 ML IV SCH (10:23)
[2023-08-27] MEDS: MEROPENEM 500 MG in NS 50 ML IV SCH ×2 (10:24→21:45)
[2023-08-27] MEDS: FLUCONAZOLE 200 mg/ NS 100 ML IV SCH (10:26)
[2023-08-27] MEDS: traZODone HCL 50 MG TABLET (DESYREL) PO SCH ×2 (21:00→21:59)
[2023-08-28 00:58] VITALS: BP_SYST 141; PULSE 79; RESP 16; TEMP 99.1; O2SAT 100
[2023-08-28] MEDS: HYDROmorphone 1 MG/ML INJ. CARTRIDGE IVP PRN ×3 (01:45→11:20)
[2023-08-28] MEDS: INSULIN LISPRO SLIDING SCALE 100 UNITS/ML, 3 ML VIAL (humaLOG) SUBCUT PRN ×3 (06:52→21:21)
[2023-08-28 08:33] LABS: BASOPHILS % (AUTO) 0.2 % (0.0-2.0); EOSINOPHILS # (AUTO) 0.2 K/uL (0.0-0.4); EOSINOPHILS % (AUTO) 1.4 % (0.0-4.0); HEMATOCRIT 28.7 % (36-48); LYMPHOCYTES # (AUTO) 0.8 K/uL (1.0-5.5); LYMPHOCYTES % (AUTO) 5.5 % (20.5-51.5); MEAN CORPUSCULAR HEMOGLOBIN 27 pg (27-31); MEAN CORPUSCULAR HGB CONC 32 % (32-36); MEAN CORPUSCULAR VOLUME 84 fL (79.0-98.0); MONOCYTES # (AUTO) 0.8 K/uL (0.0-1.0); MONOCYTES % (AUTO) 5.6 % (1.7-9.3); NEUTROPHILS # (AUTO) 12.2 K/uL (1.8-7.7); NEUTROPHILS % (AUTO) 87.3 % (40.0-70.0); PLATELET COUNT (AUTO) 363 K/uL (130-430); RED BLOOD CELL COUNT(AUTO) 3.41 MIL/uL (4.2-6.2); RED CELL DISTRIBUTION WIDTH 15.4 % (9.0-15.0)
[2023-08-28 09:21] VITALS: BP_SYST 156; PULSE 85; RESP 16; TEMP 96.8; O2SAT 99
[2023-08-28 09:21] LABS: ANION GAP 8 (5-15); CALCIUM 8.3 mg/dL (8.4-11.0); CARBON DIOXIDE 23 mmol/L (23-29); CHLORIDE 105 mmol/L (98-107); CREATININE 2.26 mg/dL (0.55-1.30); GLUCOSE 192 mg/dL (74-106); POTASSIUM 4.1 mmol/L (3.5-5.1); SODIUM SERUM 136 mmol/L (136-145); UREA NITROGEN, BLOOD 20 mg/dL (8-21)
[2023-08-28] MEDS: metroNIDAZOLE 500 mg/NS 100 ML IV SCH ×2 (09:28→22:50)
[2023-08-28] MEDS: FLUCONAZOLE 200 mg/ NS 100 ML IV SCH (09:29)
[2023-08-28] MEDS: SOD FERRIC GLUC COMPLEX/SUC 125 MG in NS 100 ML IV SCH (09:30)
[2023-08-28] MEDS: MEROPENEM 500 MG in NS 50 ML IV SCH ×2 (09:48→20:53)
[2023-08-28 10:49] VITALS: O2SAT 99
[2023-08-28 11:17] VITALS: BP_SYST 145; PULSE 90; RESP 15; TEMP 98.3; O2SAT 96
[2023-08-28] MEDS: D5/0.45 NS 1,000 ML IV SCH (14:57)
[2023-08-28 15:19] VITALS: BP_SYST 137; PULSE 88; RESP 16; TEMP 97.4; O2SAT 92
[2023-08-28] MEDS ORDERED: POLYETHYLENE GLYCOL 3350, 17 GM/ POWD.PACK PO ONE (17:00)
[2023-08-28] MEDS: OXYCODONE/ACETAMINOPHEN 5-325 TABLET PO PRN (17:37)
[2023-08-28] MEDS: ONDANSETRON HCL 4 MG/2 ML VIAL IVP PRN (20:52)
[2023-08-28] MEDS: traZODone HCL 50 MG TABLET (DESYREL) PO SCH (21:22)
[2023-08-29] VITALS: BP_SYST 151; PULSE 92; RESP 21; TEMP 97.7; O2SAT 94
[2023-08-29] MEDS: D5/0.45 NS 1,000 ML IV SCH ×2 (00:50→06:03)
[2023-08-29] MEDS: ONDANSETRON HCL 4 MG/2 ML VIAL IVP PRN ×2 (02:06→16:15)
[2023-08-29 05:50] LABS: BILIRUBIN,URINE NEGATIVE (NEGATIVE); BLOOD, URINE 1+ (NEGATIVE); CLARITY/URINE SL CLOUDY (CLEAR); COLOR,URINE YELLOW (YELLOW); GLUCOSE,URINE 3+ (NEGATIVE); KETONES,URINE 1+ (NEGATIVE); NITRITE, URINE NEGATIVE (NEGATIVE); PROTEIN URINE 1+ (NEGATIVE); UROBILINOGEN,URINE 0.2 (0.2-1.0)
[2023-08-29] MEDS: INSULIN LISPRO SLIDING SCALE 100 UNITS/ML, 3 ML VIAL (humaLOG) SUBCUT PRN ×4 (05:58→21:22)
[2023-08-29 06:07] LABS: LEUKOCYTE ESTERASE ,URINE 1+ (NEGATIVE)
[2023-08-29 06:08] LABS: BACTERIA,URINE MANY /HPF (None Seen); WBC,URINE 50-80 /HPF (0-3)
[2023-08-29 06:09] LABS: YEAST,URINE Moderate /HPF (None Seen)
[2023-08-29 06:29] LABS: BASOPHILS # (AUTO) 0.1 K/uL (0.0-0.2); BASOPHILS % (AUTO) 0.4 % (0.0-2.0); EOSINOPHILS # (AUTO) 0.1 K/uL (0.0-0.4); EOSINOPHILS % (AUTO) 0.4 % (0.0-4.0); HEMATOCRIT 34.6 % (36-48); LYMPHOCYTES # (AUTO) 0.8 K/uL (1.0-5.5); MEAN CORPUSCULAR HEMOGLOBIN 27 pg (27-31); MEAN CORPUSCULAR HGB CONC 32 % (32-36); MEAN CORPUSCULAR VOLUME 83 fL (79.0-98.0); MONOCYTES # (AUTO) 0.9 K/uL (0.0-1.0); MONOCYTES % (AUTO) 5.4 % (1.7-9.3); NEUTROPHILS # (AUTO) 14.5 K/uL (1.8-7.7); NEUTROPHILS % (AUTO) 88.8 % (40.0-70.0); PLATELET COUNT (AUTO) 483 K/uL (130-430); RED BLOOD CELL COUNT(AUTO) 4.15 MIL/uL (4.2-6.2); WHITE BLOOD COUNT (AUTO) 16.3 K/uL (4.8-10.8)
[2023-08-29 06:56] LABS: ANION GAP 10 (5-15); CALCIUM 8.4 mg/dL (8.4-11.0); CARBON DIOXIDE 22 mmol/L (23-29); CHLORIDE 96 mmol/L (98-107); GLUCOSE 253 mg/dL (74-106); POTASSIUM 3.4 mmol/L (3.5-5.1); SODIUM SERUM 128 mmol/L (136-145); UREA NITROGEN, BLOOD 20 mg/dL (8-21)
[2023-08-29 07:53] LABS: HEMOGLOBIN 11.1 g/dL (12.0-16.0)
[2023-08-29 08:00] VITALS: O2SAT 97
[2023-08-29 08:36] VITALS: BP_SYST 156; PULSE 79; RESP 18; TEMP 97.2; O2SAT 97
[2023-08-29] MEDS: MEROPENEM 500 MG in NS 50 ML IV SCH ×2 (09:10→21:06)
[2023-08-29] MEDS: metroNIDAZOLE 500 mg/NS 100 ML IV SCH (09:11)
[2023-08-29] MEDS: SOD FERRIC GLUC COMPLEX/SUC 125 MG in NS 100 ML IV SCH (09:11)
[2023-08-29] MEDS: OXYCODONE/ACETAMINOPHEN 5-325 TABLET PO PRN (09:19)
[2023-08-29] MEDS: POLYETHYLENE GLYCOL 3350, 17 GM/ POWD.PACK PO SCH (11:04)
[2023-08-29] MEDS: MICAFUNGIN SODIUM 50 MG in NS 50 ML IV SCH (12:09)
[2023-08-29] MEDS: HYDROmorphone 1 MG/ML INJ. CARTRIDGE IVP PRN (16:14)
[2023-08-29 17:36] VITALS: O2SAT 97
[2023-08-29] MEDS: NACL 0.9% 1,000 ML IV SCH (19:02)
[2023-08-29 20:17] VITALS: BP_SYST 165; PULSE 100; RESP 16; TEMP 97.4; O2SAT 95
[2023-08-29 20:36] VITALS: O2SAT 95
[2023-08-29] MEDS: traZODone HCL 50 MG TABLET (DESYREL) PO SCH (21:05)
[2023-08-29] MEDS: INSULIN GLARGINE 100 UNITS/ML, 10 ML VIAL SUBCUT SCH (21:13)
[2023-08-30 01:02] VITALS: BP_SYST 173; PULSE 59; RESP 16; TEMP 98.1; O2SAT 95
[2023-08-30 06:14] LABS: BASOPHILS # (AUTO) 0.1 K/uL (0.0-0.2); BASOPHILS % (AUTO) 0.4 % (0.0-2.0); EOSINOPHILS # (AUTO) 0.1 K/uL (0.0-0.4); EOSINOPHILS % (AUTO) 0.6 % (0.0-4.0); HEMATOCRIT 31.1 % (36-48); HEMOGLOBIN 10.2 g/dL (12.0-16.0); LYMPHOCYTES % (AUTO) 6.2 % (20.5-51.5); MEAN CORPUSCULAR HEMOGLOBIN 27 pg (27-31); MEAN CORPUSCULAR HGB CONC 33 % (32-36); MEAN CORPUSCULAR VOLUME 82 fL (79.0-98.0); MONOCYTES # (AUTO) 0.8 K/uL (0.0-1.0); MONOCYTES % (AUTO) 5.3 % (1.7-9.3); NEUTROPHILS # (AUTO) 14.1 K/uL (1.8-7.7); NEUTROPHILS % (AUTO) 87.5 % (40.0-70.0); PLATELET COUNT (AUTO) 502 K/uL (130-430); WHITE BLOOD COUNT (AUTO) 16.1 K/uL (4.8-10.8)
[2023-08-30 06:21] LABS: ANION GAP 9 (5-15); CALCIUM 7.5 mg/dL (8.4-11.0); CARBON DIOXIDE 22 mmol/L (23-29); CHLORIDE 101 mmol/L (98-107); CREATININE 1.83 mg/dL (0.55-1.30); GLUCOSE 156 mg/dL (74-106); POTASSIUM 3.3 mmol/L (3.5-5.1); SODIUM SERUM 132 mmol/L (136-145); UREA NITROGEN, BLOOD 23 mg/dL (8-21)
[2023-08-30] MEDS: NACL 0.9% 1,000 ML IV SCH ×2 (06:41→21:54)
[2023-08-30 07:50] VITALS: BP_SYST 185; PULSE 107; RESP 17; TEMP 97.7; O2SAT 96
[2023-08-30] MEDS: MORPHINE 2 MG/ML INJ. SYRINGE IVP PRN (08:05)
[2023-08-30] MEDS: ONDANSETRON HCL 4 MG/2 ML VIAL IVP PRN ×3 (08:13→18:06)
[2023-08-30] MEDS ORDERED: POLYETHYLENE GLYCOL 3350, 17 GM/ POWD.PACK PO SCH (10:15)
[2023-08-30] MEDS: SOD FERRIC GLUC COMPLEX/SUC 125 MG in NS 100 ML IV SCH (10:48)
[2023-08-30] MEDS: MEROPENEM 500 MG in NS 50 ML IV SCH ×2 (10:49→21:53)
[2023-08-30] MEDS: POLYETHYLENE GLYCOL 3350, 17 GM/ POWD.PACK PO SCH (10:53)
[2023-08-30 11:12] VITALS: BP_SYST 158; PULSE 101; RESP 16; TEMP 98.7; O2SAT 96
[2023-08-30] MEDS: HYDROmorphone 1 MG/ML INJ. CARTRIDGE IVP PRN ×2 (11:26→18:07)
[2023-08-30] MEDS: INSULIN LISPRO SLIDING SCALE 100 UNITS/ML, 3 ML VIAL (humaLOG) SUBCUT PRN ×2 (11:30→11:50)
[2023-08-30] MEDS ORDERED: hydrALAZINE HCL 20 MG/ML VIAL IVP PRN (12:00)
[2023-08-30] MEDS ORDERED: CARVEDILOL 12.5 MG TABLET (COREG) PO ONE (12:15)
[2023-08-30] MEDS ORDERED: DIATR MEGLU/DIATRIZ SOD 30 ML SOLUTION PO ONE (13:28)
[2023-08-30] MEDS: MICAFUNGIN SODIUM 50 MG in NS 50 ML IV SCH (13:44)
[2023-08-30 15:06] VITALS: BP_SYST 129; PULSE 110; RESP 16; TEMP 97.1; O2SAT 96
[2023-08-30 18:19] VITALS: BP_SYST 158; PULSE 107; O2SAT 96
[2023-08-30 20:00] VITALS: BP_SYST 150; PULSE 105; RESP 18; TEMP 97.7; O2SAT 95; O2SAT 96
[2023-08-30] MEDS: CARVEDILOL 12.5 MG TABLET (COREG) PO SCH (21:52)
[2023-08-30] MEDS: traZODone HCL 50 MG TABLET (DESYREL) PO SCH (21:52)
[2023-08-30] MEDS: ZOLPIDEM TARTRATE 5 MG TABLET PO PRN ×2 (21:52)
[2023-08-30] MEDS: INSULIN GLARGINE 100 UNITS/ML, 10 ML VIAL SUBCUT SCH (21:58)
[2023-08-31 01:47] VITALS: BP_SYST 142; PULSE 100; RESP 18; TEMP 98.1; O2SAT 96
[2023-08-31] MEDS: HYDROmorphone 1 MG/ML INJ. CARTRIDGE IVP PRN ×2 (02:16→15:23)
[2023-08-31] MEDS: ONDANSETRON HCL 4 MG/2 ML VIAL IVP PRN ×2 (02:16→08:44)
[2023-08-31 06:12] LABS: BASOPHILS % (AUTO) 0.2 % (0.0-2.0); EOSINOPHILS # (AUTO) 0.1 K/uL (0.0-0.4); EOSINOPHILS % (AUTO) 0.5 % (0.0-4.0); HEMATOCRIT 31.9 % (36-48); HEMOGLOBIN 10.2 g/dL (12.0-16.0); LYMPHOCYTES # (AUTO) 1.1 K/uL (1.0-5.5); LYMPHOCYTES % (AUTO) 5.4 % (20.5-51.5); MEAN CORPUSCULAR HEMOGLOBIN 26 pg (27-31); MEAN CORPUSCULAR HGB CONC 32 % (32-36); MEAN CORPUSCULAR VOLUME 83 fL (79.0-98.0); MONOCYTES % (AUTO) 5.3 % (1.7-9.3); NEUTROPHILS # (AUTO) 17.2 K/uL (1.8-7.7); NEUTROPHILS % (AUTO) 88.6 % (40.0-70.0); PLATELET COUNT (AUTO) 588 K/uL (130-430); RED BLOOD CELL COUNT(AUTO) 3.85 MIL/uL (4.2-6.2); RED CELL DISTRIBUTION WIDTH 15.1 % (9.0-15.0); WHITE BLOOD COUNT (AUTO) 19.4 K/uL (4.8-10.8)
[2023-08-31 06:24] LABS: ANION GAP 11 (5-15); CARBON DIOXIDE 23 mmol/L (23-29); CHLORIDE 100 mmol/L (98-107); CREATININE 1.76 mg/dL (0.55-1.30); GLUCOSE 141 mg/dL (74-106); POTASSIUM 3.5 mmol/L (3.5-5.1); SODIUM SERUM 134 mmol/L (136-145); UREA NITROGEN, BLOOD 24 mg/dL (8-21)
[2023-08-31 08:00] VITALS: BP_SYST 164; PULSE 85; RESP 16; TEMP 97.4; O2SAT 99
[2023-08-31] MEDS ORDERED: DIATR MEGLU/DIATRIZ SOD 30 ML SOLUTION PO ONE (08:35)
[2023-08-31] MEDS: CARVEDILOL 12.5 MG TABLET (COREG) PO SCH ×2 (08:53→21:31)
[2023-08-31] MEDS: POLYETHYLENE GLYCOL 3350, 17 GM/ POWD.PACK PO SCH (08:55)
[2023-08-31] MEDS: MEROPENEM 500 MG in NS 50 ML IV SCH ×2 (08:55→22:38)
[2023-08-31] MEDS: NACL 0.9% 1,000 ML IV SCH (08:57)
[2023-08-31 10:13] VITALS: O2SAT 99
[2023-08-31] MEDS: SOD FERRIC GLUC COMPLEX/SUC 125 MG in NS 100 ML IV SCH (11:49)
[2023-08-31] MEDS: MICAFUNGIN SODIUM 50 MG in NS 50 ML IV SCH (15:22)
[2023-08-31 20:00] VITALS: BP_SYST 165; PULSE 90; RESP 18; TEMP 98.4; O2SAT 99
[2023-08-31] MEDS: INSULIN GLARGINE 100 UNITS/ML, 10 ML VIAL SUBCUT SCH (21:30)
[2023-08-31] MEDS: traZODone HCL 50 MG TABLET (DESYREL) PO SCH (21:31)
[2023-09-01] VITALS (8 sets, daily range): BP systolic 136–166; PULSE 72–98; RESP 18–20; TEMP 97.5–98.8; O2SAT 94–100
[2023-09-01] MEDS: HYDROmorphone 1 MG/ML INJ. CARTRIDGE IVP PRN ×4 (03:20→23:13)
[2023-09-01] MEDS: NACL 0.9% 1,000 ML IV SCH ×2 (05:52→12:25)
[2023-09-01 06:04] LABS: BASOPHILS % (AUTO) 0.2 % (0.0-2.0); EOSINOPHILS # (AUTO) 0.1 K/uL (0.0-0.4); HEMATOCRIT 27.7 % (36-48); LYMPHOCYTES # (AUTO) 0.8 K/uL (1.0-5.5); MEAN CORPUSCULAR HEMOGLOBIN 27 pg (27-31); MEAN CORPUSCULAR HGB CONC 32 % (32-36); MEAN CORPUSCULAR VOLUME 83 fL (79.0-98.0); MONOCYTES # (AUTO) 0.7 K/uL (0.0-1.0); NEUTROPHILS # (AUTO) 11.7 K/uL (1.8-7.7); NEUTROPHILS % (AUTO) 87.8 % (40.0-70.0); PLATELET COUNT (AUTO) 482 K/uL (130-430); RED BLOOD CELL COUNT(AUTO) 3.33 MIL/uL (4.2-6.2); RED CELL DISTRIBUTION WIDTH 15.2 % (9.0-15.0); WHITE BLOOD COUNT (AUTO) 13.3 K/uL (4.8-10.8)
[2023-09-01 06:23] LABS: ANION GAP 10 (5-15); CALCIUM 7.6 mg/dL (8.4-11.0); CARBON DIOXIDE 22 mmol/L (23-29); CHLORIDE 102 mmol/L (98-107); CREATININE 1.82 mg/dL (0.55-1.30); GLUCOSE 72 mg/dL (74-106); POTASSIUM 3.4 mmol/L (3.5-5.1); SODIUM SERUM 134 mmol/L (136-145); UREA NITROGEN, BLOOD 26 mg/dL (8-21)
[2023-09-01 06:28] LABS: ALANINE AMINOTRANSFERASE 11 U/L (12-78); ALBUMIN 1.6 g/dL (3.4-4.8); ASPARTATE AMINOTRANSFERASE 22 U/L (10-37); TOTAL BILIRUBIN 0.3 mg/dL (0.0-1.0); TOTAL PROTEIN, SERUM 4.9 g/dL (6.4-8.3)
[2023-09-01 06:42] LABS: INR 2.3 (0.8-1.2); PROTHROMBIN TIME 22.8 SECS (9.5-12.5)
[2023-09-01] MEDS: POLYETHYLENE GLYCOL 3350, 17 GM/ POWD.PACK PO SCH (08:46)
[2023-09-01] MEDS: ONDANSETRON HCL 4 MG/2 ML VIAL IVP PRN ×2 (09:20→15:10)
[2023-09-01] MEDS: SOD FERRIC GLUC COMPLEX/SUC 125 MG in NS 100 ML IV SCH (09:21)
[2023-09-01] MEDS: CARVEDILOL 12.5 MG TABLET (COREG) PO SCH (09:30)
[2023-09-01] MEDS: MEROPENEM 500 MG in NS 50 ML IV SCH (11:39)
[2023-09-01] MEDS: MICAFUNGIN SODIUM 50 MG in NS 50 ML IV SCH (11:49)
[2023-09-01] MEDS ORDERED: *TPN PER PHARMACY XX PRN (20:15)
[2023-09-01] MEDS ORDERED: METOCLOPRAMIDE HCL 10 MG/2 ML VIAL IVP PRN (20:15)
[2023-09-01] MEDS: INSULIN GLARGINE 100 UNITS/ML, 10 ML VIAL SUBCUT SCH (21:00)
[2023-09-01] MEDS: traZODone HCL 50 MG TABLET (DESYREL) PO SCH (21:00)
[2023-09-01] MEDS: CARVEDILOL 25 MG TABLET (COREG) PO SCH (23:14)
[2023-09-02] VITALS (7 sets, daily range): BP systolic 128–132; PULSE 86–90; RESP 18–20; TEMP 97.6–97.9; O2SAT 93–97
[2023-09-02] MEDS: NACL 0.9% 1,000 ML IV SCH (00:04)
[2023-09-02] MEDS: MEROPENEM 500 MG in NS 50 ML IV SCH ×2 (04:22→12:00)
[2023-09-02 06:16] LABS: BASOPHILS % (AUTO) 0.1 % (0.0-2.0); HEMATOCRIT 33.4 % (36-48); HEMOGLOBIN 10.7 g/dL (12.0-16.0); LYMPHOCYTES # (AUTO) 0.9 K/uL (1.0-5.5); LYMPHOCYTES % (AUTO) 5.6 % (20.5-51.5); MEAN CORPUSCULAR HEMOGLOBIN 27 pg (27-31); MEAN CORPUSCULAR HGB CONC 32 % (32-36); MEAN CORPUSCULAR VOLUME 83 fL (79.0-98.0); MONOCYTES # (AUTO) 0.5 K/uL (0.0-1.0); NEUTROPHILS # (AUTO) 15.4 K/uL (1.8-7.7); NEUTROPHILS % (AUTO) 91.3 % (40.0-70.0); PLATELET COUNT (AUTO) 639 K/uL (130-430); RED BLOOD CELL COUNT(AUTO) 4.04 MIL/uL (4.2-6.2); RED CELL DISTRIBUTION WIDTH 15.2 % (9.0-15.0); WHITE BLOOD COUNT (AUTO) 16.8 K/uL (4.8-10.8)
[2023-09-02 06:45] LABS: ALANINE AMINOTRANSFERASE 11 U/L (12-78); ALBUMIN 1.9 g/dL (3.4-4.8); ANION GAP 16 (5-15); ASPARTATE AMINOTRANSFERASE 28 U/L (10-37); CALCIUM 8.2 mg/dL (8.4-11.0); CARBON DIOXIDE 20 mmol/L (23-29); CHLORIDE 97 mmol/L (98-107); CREATININE 2.01 mg/dL (0.55-1.30); GLUCOSE 180 mg/dL (74-106); PHOSPHORUS 3.4 mg/dL (2.7-4.5); POTASSIUM 3.6 mmol/L (3.5-5.1); SODIUM SERUM 133 mmol/L (136-145); TOTAL BILIRUBIN 0.4 mg/dL (0.0-1.0); TRIGLYCERIDES 228 mg/dL (30-150); UREA NITROGEN, BLOOD 28 mg/dL (8-21)
[2023-09-02 07:53] LABS: TOTAL PROTEIN, SERUM 6.1 g/dL (6.4-8.3)
[2023-09-02] MEDS: POLYETHYLENE GLYCOL 3350, 17 GM/ POWD.PACK PO SCH (09:00)
[2023-09-02] MEDS: SOD FERRIC GLUC COMPLEX/SUC 125 MG in NS 100 ML IV SCH (09:00)
[2023-09-02] MEDS: CARVEDILOL 25 MG TABLET (COREG) PO SCH (09:00)
[2023-09-02] MEDS: HYDROmorphone 1 MG/ML INJ. CARTRIDGE IVP PRN ×3 (10:45→17:09)
[2023-09-02] MEDS: MICAFUNGIN SODIUM 50 MG in NS 50 ML IV SCH (12:00)
[2023-09-02] MEDS ORDERED: fentaNYL CITRATE/PF 100 MCG/2 ML AMP ONE (14:35)
[2023-09-02] MEDS ORDERED: MIDAZOLAM HCL 5 MG/5 ML VIAL ONE (14:36)
[2023-09-02] MEDS: D5NS 1,000 ML IV SCH (19:00)
[2023-09-02] MEDS: traZODone HCL 50 MG TABLET (DESYREL) PO SCH (21:00)
[2023-09-02] MEDS: [UNRECOGNIZED DRUG - OTHER] IV SCH ×9 (21:00)
[2023-09-02] MEDS: POTASSIUM ACETATE IV SCH ×9 (21:00)
[2023-09-02] MEDS: TPN CENTRAL IV SCH ×9 (21:00)
[2023-09-02] MEDS: K PHOS IV SCH ×9 (21:00)
[2023-09-02] MEDS: SODIUM ACETATE IV SCH ×9 (21:00)
[2023-09-02] MEDS: INSULIN GLARGINE 100 UNITS/ML, 10 ML VIAL SUBCUT SCH (21:00)
[2023-09-03 01:00] VITALS: BP_SYST 147; PULSE 86; RESP 16; TEMP 97.1; O2SAT 94
[2023-09-03] MEDS: MEROPENEM 500 MG in NS 50 ML IV SCH ×2 (01:32→11:28)
[2023-09-03] MEDS: TEMAZEPAM 7.5 MG CAPSULE PO PRN (01:33)
[2023-09-03] MEDS: CARVEDILOL 25 MG TABLET (COREG) PO SCH ×3 (01:34→21:58)
[2023-09-03 05:41] LABS: BASOPHILS # (AUTO) 0.1 K/uL (0.0-0.2); BASOPHILS % (AUTO) 0.6 % (0.0-2.0); EOSINOPHILS # (AUTO) 0.1 K/uL (0.0-0.4); EOSINOPHILS % (AUTO) 0.7 % (0.0-4.0); HEMATOCRIT 26.4 % (36-48); HEMOGLOBIN 8.6 g/dL (12.0-16.0); LYMPHOCYTES # (AUTO) 0.9 K/uL (1.0-5.5); LYMPHOCYTES % (AUTO) 7.6 % (20.5-51.5); MEAN CORPUSCULAR HEMOGLOBIN 27 pg (27-31); MEAN CORPUSCULAR HGB CONC 33 % (32-36); MEAN CORPUSCULAR VOLUME 83 fL (79.0-98.0); MONOCYTES # (AUTO) 0.6 K/uL (0.0-1.0); MONOCYTES % (AUTO) 4.8 % (1.7-9.3); NEUTROPHILS # (AUTO) 10.4 K/uL (1.8-7.7); NEUTROPHILS % (AUTO) 86.3 % (40.0-70.0); PLATELET COUNT (AUTO) 475 K/uL (130-430); RED BLOOD CELL COUNT(AUTO) 3.18 MIL/uL (4.2-6.2); RED CELL DISTRIBUTION WIDTH 15.5 % (9.0-15.0)
[2023-09-03 07:08] LABS: ALANINE AMINOTRANSFERASE 8 U/L (12-78); ALBUMIN 1.7 g/dL (3.4-4.8); ANION GAP 8 (5-15); ASPARTATE AMINOTRANSFERASE 22 U/L (10-37); CALCIUM 7.4 mg/dL (8.4-11.0); CARBON DIOXIDE 28 mmol/L (23-29); CHLORIDE 101 mmol/L (98-107); GLUCOSE 190 mg/dL (74-106); PHOSPHORUS 3.5 mg/dL (2.7-4.5); POTASSIUM 3.1 mmol/L (3.5-5.1); SODIUM SERUM 137 mmol/L (136-145); TOTAL BILIRUBIN 0.3 mg/dL (0.0-1.0); TOTAL PROTEIN, SERUM 5.1 g/dL (6.4-8.3); UREA NITROGEN, BLOOD 29 mg/dL (8-21)
[2023-09-03 08:00] VITALS: BP_SYST 155; PULSE 77; RESP 20; TEMP 98; O2SAT 96; O2SAT 97
[2023-09-03] MEDS: D5NS 1,000 ML IV SCH (08:48)
[2023-09-03] MEDS: SOD FERRIC GLUC COMPLEX/SUC 125 MG in NS 100 ML IV SCH (09:45)
[2023-09-03] MEDS: POLYETHYLENE GLYCOL 3350, 17 GM/ POWD.PACK PO SCH (10:42)
[2023-09-03] MEDS: OXYCODONE/ACETAMINOPHEN 5-325 TABLET PO PRN ×3 (10:53→20:35)
[2023-09-03 12:31] VITALS: BP_SYST 145; PULSE 86; RESP 18; TEMP 97.5; O2SAT 97
[2023-09-03] MEDS: MICAFUNGIN SODIUM 50 MG in NS 50 ML IV SCH (12:40)
[2023-09-03] MEDS: INSULIN LISPRO SLIDING SCALE 100 UNITS/ML, 3 ML VIAL (humaLOG) SUBCUT PRN ×3 (13:08→22:05)
[2023-09-03 16:02] VITALS: BP_SYST 147; PULSE 82; RESP 19; TEMP 97.8; O2SAT 96
[2023-09-03 20:00] VITALS: BP_SYST 179; PULSE 83; RESP 18; TEMP 98.1; O2SAT 95
[2023-09-03] MEDS ORDERED: TPN CENTRAL IV SCH ×9 (21:00)
[2023-09-03] MEDS: POTASSIUM ACETATE IV SCH ×9 (21:00)
[2023-09-03] MEDS ORDERED: POTASSIUM ACETATE IV SCH ×9 (21:00)
[2023-09-03] MEDS: K PHOS IV SCH ×9 (21:00)
[2023-09-03] MEDS: SODIUM ACETATE IV SCH ×9 (21:00)
[2023-09-03] MEDS: [UNRECOGNIZED DRUG - OTHER] IV SCH ×9 (21:00)
[2023-09-03] MEDS ORDERED: [UNRECOGNIZED DRUG - OTHER] IV SCH ×9 (21:00)
[2023-09-03] MEDS ORDERED: SODIUM ACETATE IV SCH ×9 (21:00)
[2023-09-03] MEDS ORDERED: K PHOS IV SCH ×9 (21:00)
[2023-09-03] MEDS: TPN CENTRAL IV SCH ×9 (21:00)
[2023-09-03] MEDS: traZODone HCL 50 MG TABLET (DESYREL) PO SCH (21:51)
[2023-09-03] MEDS: INSULIN GLARGINE 100 UNITS/ML, 10 ML VIAL SUBCUT SCH (22:03)
[2023-09-04] MEDS: TEMAZEPAM 7.5 MG CAPSULE PO PRN (00:01)
[2023-09-04] MEDS: MEROPENEM 500 MG in NS 50 ML IV SCH ×2 (00:44→12:53)
[2023-09-04] MEDS: D5NS 1,000 ML IV SCH ×2 (00:49→13:24)
[2023-09-04 01:08] VITALS: BP_SYST 149; PULSE 74; RESP 15; TEMP 97.5; O2SAT 95
[2023-09-04] MEDS: OXYCODONE/ACETAMINOPHEN 5-325 TABLET PO PRN (06:26)
[2023-09-04] MEDS: INSULIN LISPRO SLIDING SCALE 100 UNITS/ML, 3 ML VIAL (humaLOG) SUBCUT PRN ×4 (06:33→17:32)
[2023-09-04 06:34] LABS: BASOPHILS % (AUTO) 0.3 % (0.0-2.0); EOSINOPHILS # (AUTO) 0.2 K/uL (0.0-0.4); EOSINOPHILS % (AUTO) 2.2 % (0.0-4.0); HEMATOCRIT 26.8 % (36-48); HEMOGLOBIN 8.7 g/dL (12.0-16.0); LYMPHOCYTES # (AUTO) 0.8 K/uL (1.0-5.5); LYMPHOCYTES % (AUTO) 8.9 % (20.5-51.5); MEAN CORPUSCULAR HEMOGLOBIN 27 pg (27-31); MEAN CORPUSCULAR HGB CONC 32 % (32-36); MEAN CORPUSCULAR VOLUME 83 fL (79.0-98.0); MONOCYTES # (AUTO) 0.6 K/uL (0.0-1.0); MONOCYTES % (AUTO) 6.9 % (1.7-9.3); NEUTROPHILS % (AUTO) 81.7 % (40.0-70.0); PLATELET COUNT (AUTO) 438 K/uL (130-430); RED BLOOD CELL COUNT(AUTO) 3.23 MIL/uL (4.2-6.2); RED CELL DISTRIBUTION WIDTH 15.4 % (9.0-15.0); WHITE BLOOD COUNT (AUTO) 8.6 K/uL (4.8-10.8)
[2023-09-04 07:00] LABS: ANION GAP 6 (5-15); CARBON DIOXIDE 29 mmol/L (23-29); CHLORIDE 96 mmol/L (98-107); CREATININE 1.77 mg/dL (0.55-1.30); GLUCOSE 288 mg/dL (74-106); SODIUM SERUM 131 mmol/L (136-145); UREA NITROGEN, BLOOD 22 mg/dL (8-21)
[2023-09-04 08:00] VITALS: BP_SYST 152; PULSE 86; RESP 21; TEMP 98; O2SAT 95
[2023-09-04 08:22] LABS: CALCIUM 6.7 mg/dL (8.4-11.0); POTASSIUM 2.7 mmol/L (3.5-5.1)
[2023-09-04] MEDS: SOD FERRIC GLUC COMPLEX/SUC 125 MG in NS 100 ML IV SCH (08:55)
[2023-09-04] MEDS: CARVEDILOL 25 MG TABLET (COREG) PO SCH (09:39)
[2023-09-04] MEDS: POLYETHYLENE GLYCOL 3350, 17 GM/ POWD.PACK PO SCH (09:40)
[2023-09-04] MEDS ORDERED: KCL 40 mEq in 100 mL (PREMIX) 100 ML IV ONE (10:00)
[2023-09-04 12:40] VITALS: BP_SYST 159; PULSE 72; RESP 18; TEMP 97.8; O2SAT 96
[2023-09-04] MEDS: MICAFUNGIN SODIUM 50 MG in NS 50 ML IV SCH (12:52)
[2023-09-04] MEDS ORDERED: KETOROLAC TROMETHAMINE 15 MG VIAL IVP PRN (14:30)
[2023-09-04 15:40] VITALS: BP_SYST 160; PULSE 74; RESP 18; TEMP 97.8; O2SAT 95
[2023-09-04 16:00] VITALS: BP_SYST 155; PULSE 85; RESP 18; TEMP 97.8; O2SAT 96
[2023-09-04 19:26] VITALS: BP_SYST 124; PULSE 85; RESP 20; TEMP 98.7; O2SAT 100
[2023-09-04] MEDS ORDERED: SODIUM ACETATE IV SCH ×10 (21:00)
[2023-09-04] MEDS ORDERED: POTASSIUM ACETATE IV SCH ×10 (21:00)
[2023-09-04] MEDS ORDERED: TPN PERIPHERAL IV SCH ×10 (21:00)
[2023-09-04] MEDS ORDERED: [UNRECOGNIZED DRUG - OTHER] IV SCH ×10 (21:00)
== END 2023-09-04 20:15 | DRG 853 ==
LOC: SED 08:53 → STU 12:30 → SMU 08-23 17:25 → SIC 08-24 17:40 → STU 08-26 18:52 → SMU 08-28 21:03
PROVIDERS: ADMIT General Practice; ATTEND General Practice
PROC: 0D1N0Z4 Bypass Sigmoid Colon to Cutaneous, Open Approach (ICD-10-PCS; 2023-08-24)
PROC: 0TNB0ZZ Release Bladder, Open Approach (ICD-10-PCS; 2023-08-24)
PROC: 0DN80ZZ Release Small Intestine, Open Approach (ICD-10-PCS; 2023-08-24)
PROC: 0DBN0ZZ Excision of Sigmoid Colon, Open Approach (ICD-10-PCS; principal; 2023-08-24 14:09)
PROC: 30233N1 Transfusion of Nonautologous Red Blood Cells into Peripheral Vein, Percutaneous Approach (ICD-10-PCS; 2023-08-26)
PROC: 05HY33Z Insertion of Infusion Device into Upper Vein, Percutaneous Approach (ICD-10-PCS; 2023-08-31)
PROC: B54NZZA Ultrasonography of Left Upper Extremity Veins, Guidance (ICD-10-PCS; 2023-08-31)
PROC: 0W9J30Z Drainage of Pelvic Cavity with Drainage Device, Percutaneous Approach (ICD-10-PCS; 2023-09-02)
DX: A41.9 Sepsis, unspecified organism (principal); N17.0 Acute kidney failure with tubular necrosis; R65.21 Severe sepsis with septic shock; E87.1 Hypo-osmolality and hyponatremia; Z16.12 Extended spectrum beta lactamase (ESBL) resistance; N39.0 Urinary tract infection, site not specified; K57.20 Diverticulitis of large intestine with perforation and abscess without bleeding; N32.1 Vesicointestinal fistula; F41.9 Anxiety disorder, unspecified; G47.00 Insomnia, unspecified; Z66 Do not resuscitate; F32.A Depression, unspecified; E86.9 Volume depletion, unspecified; Z20.822 Contact with and (suspected) exposure to COVID-19; B96.20 Unspecified Escherichia coli [E. coli] as the cause of diseases classified elsewhere; I12.9 Hypertensive chronic kidney disease with stage 1 through stage 4 chronic kidney disease, or unspecified chronic kidney disease; E11.22 Type 2 diabetes mellitus with diabetic chronic kidney disease; N18.31 Chronic kidney disease, stage 3a; N73.6 Female pelvic peritoneal adhesions (postinfective); R09.02 Hypoxemia; Z91.041 Radiographic dye allergy status; Z88.0 Allergy status to penicillin; Z88.8 Allergy status to other drugs, medicaments and biological substances; Z91.09 Other allergy status, other than to drugs and biological substances; Z79.899 Other long term (current) drug therapy; Z90.49 Acquired absence of other specified parts of digestive tract; Z90.710 Acquired absence of both cervix and uterus
CPT/HCPCS: 36415; 71045; 74018; 74250-TC; 75989-TC; 76376; 80048; 80053; 81000; 81001; 81015; 82570; 82962; 83037; 83690; 83735; 83880; 84100; 84302; 84478; 84484; 85018; 85025; 85610-TC; 85730-TC; 86886; 86900; 86901; 86920; 87040; 87070; 87070-TC; 87075-TC; 87081; 87086; 87186-TC; 88305; 88307; 93005; 93306; 93971; 94010; 94760; 97110-GP; 97116-GP; 97530-GP; 99285; C9290; G0378; J0131; J0610; J0690; J0744; J1170; J1450; J1815; J1885; J1956; J2060; J2185; J2250; J2270; J2370; J2405; J2704; J2765; J2916; J3010; J3465; J3475; J3480; J3490; J7060; J7120; P9021; P9041; P9046; Q9964; Q9968